=== PATIENT | male | born 1995 | race Caucasian/White ===

== ENCOUNTER 2017-07-15 10:42 | Emergency (ER) | payer OTHER, BC ==
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
[2017-07-15] MEDS ORDERED: Ketorolac 60 MG/2 ML SDV IM ONE (11:35)
--- NOTE | 2017-07-15 12:48 | CT ---
EXAMINATION: Non contrast CT head. Coronal and sagittal reformats. HISTORY: Pain FINDINGS: No evidence of intra or extra axial hemorrhage, mass, midline shift, hydrocephalus or edema. No hypoattenuation changes in the major vascular territories to suggest acute infarct. No abnormal intracranial calcifications are detected. No evidence of substantial vascular calcificat ions. There is a tiny mucous retention cyst within the right maxillary sinus. The orbits and globes are sym metric. Pituitary fossa appears unremarkable. Calvarium is intact. No evidence of skull fracture. IMPRESSION: No acute intracranial findings.
--- NOTE | 2017-07-15 12:52 | CT ---
EXAMINATION: CT cervical spine HISTORY: Pain COMPARISON: None TECHNIQUE: Axial CT images obtained through the cervical spine without contrast. Coronal and sagittal reconstructions obtained. FINDINGS: The cervical spinal alignment is normal. The vertebral body heights and disc spaces appear well-maintained. There is no fracture or dislocation. The prevertebral soft tissues appear normal. Th e temporomandibular joints are symmetric. Bone mineralization is normal. The lung apices are clear. IMPRESSION: 1. No acute cervical spinal abnormality.
--- NOTE | 2017-07-15 13:01 | CR ---
EXAMINATION: Two-view chest (PA and Lateral views). HISTORY: Shortness of breath. FINDINGS: The trachea is midline. The cardiomediastinal silhouette is within normal limits. No pulmonary infilt rates, effusions or pneumothorax. Osseous structures appear unremarkable. IMPRESSION: No acute cardiopulmonary process.
[2017-07-15 13:33] VITALS: BP 120/70
== END 2017-07-15 13:41 | disposition home or self-care (01) ==
LOC: MW.ED 10:42
DX: S10.93XA Contusion of unspecified part of neck, initial encounter (principal); V43.52XA Car driver injured in collision with other type car in traffic accident, initial encounter
CPT/HCPCS: 70450; 71020; 72125; 96372; 99284; J1885; 99282